=== PATIENT | male | born 1990 | race Native Hawaiian/Other Pacific Islander ===

== ENCOUNTER 2021-04-14 19:54 | Emergency (ER) | payer OTHER ==
[~2021-04-14] VITALS: Ht 180.3 cm; Wt 72.6 kg
[2021-04-14 19:54] VITALS: BP 144/86; TEMP 99.1
== END 2021-04-14 21:00 ==
LOC: ED 20:20
DX: R46.89 Other symptoms and signs involving appearance and behavior (principal)
CPT/HCPCS: 99282